=== PATIENT | male | born 1940 | race Caucasian/White ===

== ENCOUNTER 2016-03-11 12:39 | Day surgery (SDC) | payer MEDICARE ==
[~2016-03-11] VITALS: Ht 172.7 cm; Wt 99.8 kg
[~2016-03-11 12:39] MED LIST: ASPI-973 PO; CHOL10008 PO; FEXO180T85 PO; FURO40TA PO; IPRA15SP NS; ISOS60TA2 PO; K20 PO; LISI10TA9 PO; MAGN400T4 PO; METO50TA PO; MVI; NITR0.4T SL; SMV40T PO; Sodium Chloride LOK Flush 10 mL Syringe IVFLUSH SCH; fentaNYL-PF 50 mCg/mL 2 mL Inj IVPUSH PRN
[2016-03-11 13:00] VITALS: BP 137/74; PULSE 60; RESP 14; O2SAT 98
[2016-03-11 14:42] VITALS: BP 116/66; PULSE 60; RESP 14; O2SAT 95
[2016-03-11 14:52] VITALS: BP 97/54; PULSE 60; RESP 14; O2SAT 94
[2016-03-11 15:02] VITALS: BP 108/64; PULSE 60; RESP 14; O2SAT 96
--- NOTE | 2016-03-11 16:08 | ENDO ---
[address] [address] ENDOSCOPY PROCEDURE PATIENT: ZHANG WOODRUFF : 1940 MR#: [id number] ADMIT: 03/11/2016 JOB ID: [id number] DATE OF SERVICE: 03/11/2016 PRIMARY CARE PHYSICIAN: Lamberto Shah MD. PROCEDURE: Colonoscopy with polypectomy. INDICATION: The patient is a 75-year-old man who is due for a screening colonoscopy. EQUIPMENT: [employer]. SEDATION: 1. Versed 6 mg. 2. Fentanyl 150 mcg. PREPARATION QUALITY: Fair/poor. COMPLICATIONS: None identified. PROCEDURE INFORMATION: The patient brought into the endoscopy suite and placed in the left lateral decubitus position. Sedation was achieved using the above-stated medication with addition of oxygen administered via nasal cannula. Digital rectal exam was performed. Aside from a large, redundant skin tag, it was unremarkable. The scope was then introduced through the anus and slowly advanced under direct visualization. The quality of the prep was fair to poor. There were frequent pools of vegetable matter and stool obscuring the view. The colon was very tortuous. I struggled with frequent looping of the scope. Eventually, I was able to get just past the hepatic flexure. I was unable to get all the way down into the ascending colon to the cecum. Two small polyps were identified just past the hepatic flexure. One was taken with a cold snare and the other with a cold forceps. I struggled to get the scope down into the cecum. I withdrew the scope all the way to the left colon and then readvanced it but still struggled with looping. It eventually became apparent that I would not be able to get it down to the cecum. The scope was then slowly withdrawn, examining the mucosa carefully for any defects or polyps. No additional polyps were identified. Retroflex views were attempted in the rectum but the patient did not tolerate it. The scope was then withdrawn and the procedure completed. FINDINGS: 1. Incomplete colonoscopy. 2. Polyp at the hepatic flexure. RECOMMENDATIONS: Await histopathology regarding further recommendations for repeat colonoscopy versus other modality for screening.
--- NOTE | 2016-03-13 11:58 | PATH ---
SURGICAL PATHOLOGY Attending Physician:Sukhdev López MD CASE STATUS: Signed Out PATIENT NAME: ZHANG WOODRUFF PID: [id number] : 1940 DATE COLLECTED:03/11/2016 00:00 SPECIMEN: Colon, Biopsy CLINICAL HISTORY: A: ASCENDING POLYPS X2 FINAL DIAGNOSIS: 1.ASCENDING COLON POLYPS: TUBULAR ADENOMA INVOLVING ALL BIOPSY FRAGMENTS. ICD10 CODE D12.2 GROSS DESCRIPTION: The specimen is received in one formalin filled container labeled with the patient's name, sublabeled "ascending polyps X2" and consists of 4 portions of tissue which aggregate to 0.5 x 0.5 x 0.4 CM. The specimen is entirely submitted in one cassette. 03/12/2016 [facility] MICRO DESCRIPTION: See diagnosis. ICD-9 CODES: CPT CODES: 1: 99631 Electronically Signed Out Srinivasa Harper MD [facility] Pathology [facility] [address], [place] [address] Technical component performed at [facility], [facility] [address], [place], [address]
== END 2016-03-11 23:59 | disposition home or self-care (01) ==
LOC: END 12:39
PROVIDERS: ATTEND General Practice
DX: Z12.11 Encounter for screening for malignant neoplasm of colon (principal); Z86.010 Personal history of colon polyps; D12.2 Benign neoplasm of ascending colon; I25.10 Atherosclerotic heart disease of native coronary artery without angina pectoris; E78.2 Mixed hyperlipidemia; I65.29 Occlusion and stenosis of unspecified carotid artery; R73.03 Prediabetes; I10 Essential (primary) hypertension; Z95.0 Presence of cardiac pacemaker; Z87.891 Personal history of nicotine dependence; Z79.82 Long term (current) use of aspirin
CPT/HCPCS: 45380; 45385; 99153; G0500; J2250; J3010; J7030